=== PATIENT | male | born 1940 | race Caucasian/White ===

== ENCOUNTER 2016-10-03 07:25 | Outpatient (CLI) | payer MEDICARE, OTHER | END 2016-10-03 07:26 | disposition home or self-care (01) | DX: I82.403 Acute embolism and thrombosis of unspecified deep veins of lower extremity, bilateral (principal); I82.5Z9 Chronic embolism and thrombosis of unspecified deep veins of unspecified distal lower extremity; Z79.01 Long term (current) use of anticoagulants ==

== ENCOUNTER 2016-10-03 13:40 | Outpatient (CLI) | payer MEDICARE, OTHER | END 2016-10-03 13:41 | disposition home or self-care (01) | DX: I82.5Z9 Chronic embolism and thrombosis of unspecified deep veins of unspecified distal lower extremity (principal); Z79.01 Long term (current) use of anticoagulants ==

== ENCOUNTER 2017-07-28 09:32 | Outpatient (CLI) | payer MEDICARE ==
[2017-07-28 10:03] LABS: BASOPHILS % (AUTO) 0.7 %; EOSINOPHILS # (AUTO) 0.1 10^3/uL (0.0-0.7); EOSINOPHILS % (AUTO) 1.4 %; HGB - HEMOGLOBIN 13.1 g/dL (14.0-18.0); LYMPHOCYTES # (AUTO) 1.3 10^3/uL (1.5-3.5); LYMPHOCYTES % (AUTO) 21.8 %; MEAN CORPUSCULAR HEMOGLOBIN 29.4 pg (27.0-31.0); MEAN CORPUSCULAR HGB CONC 33.6 g/dL (32.0-36.0); MEAN CORPUSCULAR VOLUME 87.6 fL (80.0-94.0); MONOCYTES # (AUTO) 0.6 10^3/uL (0.0-1.0); MONOCYTES % (AUTO) 10.2 %; NEUTROPHILS # (AUTO) 4.1 10^3/uL (1.5-6.6); NEUTROPHILS % (AUTO) 65.9 %; NUCLEATED RED BLOOD CELLS AUTO 0.1 /100WBC; RED BLOOD COUNT 4.45 10^6/uL (4.70-6.10); RED CELL DISTRIBUTION WIDTH 13.2 % (12.0-15.0); UNCORRECTED WHITE BLOOD COUNT 6.2 x10^3/uL; WHITE BLOOD COUNT 6.2 x10^3/uL (4.8-10.8)
[2017-07-28 10:27] LABS: HEMOGLOBIN A1C 0.72 g/dL
[2017-07-28 10:33] LABS: ALBUMIN/GLOBULIN RATIO 1.7 (1.0-2.2); BILIRUBIN,TOTAL 0.4 mg/dL (0.2-1.0); BUN - BLOOD UREA NITROGEN 23 mg/dL (6-20); CALCIUM 9.8 mg/dL (8.5-10.3); CARBON DIOXIDE - CO2 24 mmol/L (21-32); CHLORIDE 102 mmol/L (101-111); CHOL/HDL RATIO 3.5 (<5.0); CHOLESTEROL 154 mg/dL; CREATININE 1.1 mg/dL (0.6-1.2); GFR - MDRD 65 (>89); GLUCOSE 140 mg/dL (70-100); HDL CHOLESTEROL 44 mg/dL; LDL/HDL RATIO 1.9 (<3.6); POTASSIUM 4.3 mmol/L (3.5-5.0); SODIUM 139 mmol/L (135-145); TOTAL PROTEIN 7.3 g/dL (6.7-8.2); TRIGLYCERIDES 126 mg/dL; VLDL CHOLESTEROL 25 mg/dL
== END 2017-07-28 09:33 | disposition home or self-care (01) ==
LOC: LAB 09:32
PROVIDERS: ATTEND Internal Medicine
DX: E03.9 Hypothyroidism, unspecified (principal); I10 Essential (primary) hypertension; E11.9 Type 2 diabetes mellitus without complications; E78.5 Hyperlipidemia, unspecified; Z79.899 Other long term (current) drug therapy
CPT/HCPCS: 36415; 80053; 80061; 83036; 84443; 85025; G0103; 84153

== ENCOUNTER 2017-10-21 10:30 | Outpatient (CLI) | payer MEDICARE ==
[2017-10-21 13:50] LABS: HB2 TOTAL 14.1 g/dL; HEMOGLOBIN A1C 0.67 g/dL; HEMOGLOBIN A1C % 6.5 % (4.6-6.2)
== END 2017-10-21 10:31 | disposition home or self-care (01) ==
LOC: LAB.R 10:30
PROVIDERS: ATTEND Internal Medicine
DX: E11.9 Type 2 diabetes mellitus without complications (principal)
CPT/HCPCS: 83036

== ENCOUNTER 2018-09-17 13:54 | Outpatient (CLI) | payer MEDICARE ==
--- NOTE | 2018-09-17 18:13 | Ultrasound Report ---
Reason: JOB PLAQUE Procedure Date: 09/17/2018 Accession Number: [id number] / [id number] Procedure: US - Carotid Doppler Complete CPT Code: FULL RESULT: EXAM: BILATERAL CAROTID AND VERTEBRAL ARTERY DUPLEX DOPPLER ULTRASOUND: EXAM DATE: 09/17/2018 03:29 PM CLINICAL HISTORY: JOB PLAQUE. COMPARISON: 10/03/2016 7:33 AM. TECHNIQUE: Grayscale imaging, color Doppler, and duplex spectral Doppler were used to evaluate the carotid and vertebral arteries bilaterally. Static images were obtained. FINDINGS: There is mixed calcified and noncalcified plaque within the right carotid bulb. Shadowing from calcified plaque limits jung scale evaluation. Aliasing on color Doppler images from turbulent flow noted on image 22. Mild to moderate mixed calcified and noncalcified plaque within the left carotid bulb and proximal ICA. Normal antegrade flow is present in bilateral vertebral arteries. VELOCITIES (cm/sec): Right CCA mid: PSV 88 cm/sec CCA dist: PSV 66 cm/sec Right carotid bulb peak systolic velocity 303 cm/s, end-diastolic velocity 71 cm/s. ICA prox: PSV 212 cm/sec, EDV 39 cm/sec ICA mid: PSV 88 cm/sec, EDV 16 cm/sec ICA dist: PSV 66 cm/sec, EDV 15 cm/sec ECA: PSV 115 cm/sec Vert: PSV 89 cm/sec ICA/CCA: 2.41 Left CCA mid: PSV 101 cm/sec CCA dist: PSV 95 cm/sec ICA prox: PSV 99 cm/sec, EDV 26 cm/sec ICA mid: PSV 131 cm/sec, EDV 33 cm/sec ICA dist: PSV 65 cm/sec, EDV 21 cm/sec ECA: PSV 171 cm/sec Vert: PSV 72 cm/sec ICA/CCA: 1.29 ICA diameter stenosis: Right: 50-69% by velocity and <70% by NASCET criteria. Left: <50% by velocity and <70% by NASCET criteria. IMPRESSION: 1. 50-69% stenosis by Doppler criteria within proximal right internal carotid artery. Higher velocities (303 cm/sec peak systolic velocity and 71 cm/sec diastolic velocity) within right carotid bulb may be related to greater than 70% stenosis. Consider CT angiography to further characterize. 2. No hemodynamically significant left ICA stenosis. 3. Antegrade flow within bilateral vertebral arteries. General Recommendations: Stenosis =50% ICA - Follow-up ultrasound 6-12 months Stenosis <50% ICA - High Risk Patient with plaque - Follow-up ultrasound 1-2 years Normal Study but High Risk Patient - Follow-up ultrasound 3-5 years Management recommendations and diagnostic criteria are based on current IAC endorsed standards in Carotid Artery Stenosis: Grayscale and Doppler Ultrasound Diagnosis. Validated velocity measurements with angiographic measurements and velocity criteria are extrapolated from diameter data as defined by the Society of Radiologists in Ultrasound Consensus Conference Radiology 2003; 229;340-346. RADIA
== END 2018-09-17 13:55 | disposition home or self-care (01) ==
LOC: DI 13:54
PROVIDERS: ATTEND Internal Medicine
DX: H34.219 Partial retinal artery occlusion, unspecified eye (principal); I65.21 Occlusion and stenosis of right carotid artery
CPT/HCPCS: 93880

== ENCOUNTER 2018-10-06 08:23 | Outpatient (CLI) | payer MEDICARE ==
[2018-10-06 08:59] LABS: CREATININE 1.3 mg/dL (0.6-1.2)
[2018-10-06] MEDS ORDERED: IOVERSOL 320 100 ML VIAL IVP ONE (09:00)
[2018-10-06] MEDS: IOVERSOL 320 100 ML VIAL IVP ONE (09:29)
--- NOTE | 2018-10-06 14:55 | CT Report ---
Reason: ABN CAROTID DUPLEX Procedure Date: 10/06/2018 Accession Number: [id number] / [id number] Procedure: CT - Neck Angio CPT Code: FULL RESULT: EXAM: CT ANGIOGRAM NECK EXAM DATE: 10/06/2018 09:27 AM. CLINICAL HISTORY: Abnormal carotid duplex. COMPARISON: Carotid ultrasound 09/17/2018. TECHNIQUE: Routine axial helical imaging was performed from the skull base through the aortic arch. Reconstructions: Routine multiplanar 3D MIP reconstructions. IV Contrast: [id number] 80mL. Evaluation of arterial stenosis is based on a NASCET method of measurement. In accordance with CT protocol optimization, one or more of the following dose reduction techniques were utilized for this exam: automated exposure control, adjustment of mA and/or KV based on patient size, or use of iterative reconstructive technique. FINDINGS: Right Carotid: Atherosclerotic plaque is seen in the distal CCA extending into the origin and proximal cervical ICA. There is a high-grade 90% stenosis involving the origin and proximal cervical ICA. This is seen over a 10 mm in length segment. Left Carotid: Atherosclerotic plaque is seen involving the distal CCA as well as the proximal cervical ICA and ECA. There is a 50% stenosis involving the proximal cervical ICA. Vertebrals: The right vertebral artery is dominant. Facet hypertrophy and uncovertebral joint spurring result in areas of mild narrowing involving the V2 segment of the right vertebral artery. There is a high-grade narrowing involving the V2 segment of the left vertebral artery due to uncovertebral joint spurring and facet hypertrophy at the level of the C4 vertebral body. There is at least mild narrowing at the origin of the left vertebral artery. There is at least moderate narrowing at the origin of the right vertebral artery. Great vessel origins: No significant stenosis is present. Intracranial Circulation: Not seen in its entirety. No high-grade stenosis or filling defect is present in the M1 segment of either MCA or in the basilar trunk. A posterior communicating artery is seen bilaterally and there is an anterior communicating artery present. The A1 segment of the right GLORIA is hypoplastic. The proximal aspect of each anterior cerebral artery is patent. The proximal aspect of each posterior cerebral artery is patent. Mild narrowing is seen in the V4 segment of the right vertebral artery and there is moderate narrowing involving the V4 segment of the left vertebral artery due to atherosclerosis. Mild to moderate stenosis is seen involving the cavernous and paraclinoid ICA bilaterally. Other: No mass is present in either orbit. No mass is present in either submandibular gland or in either parotid gland. No mass is seen in the nasopharynx. Parapharyngeal fat is symmetric. No subglottic stenosis is present. There is a 7 mm hypoenhancing nodule in the left thyroid lobe. No bulky lymphadenopathy is seen along either internal jugular chain or in the visualized upper mediastinum. No suspicious spiculated mass is present in either lung apex. Degenerative disk disease and osteophyte formation are seen at scattered levels in the cervical spine and visualized upper thoracic spine. This is greatest in the cervical spine from C4 through T1. Scattered paranasal sinus mucosal thickening is present. IMPRESSION: 1. There is a high-grade stenosis involving the origin and proximal cervical ICA on the right. 2. There is a 50% stenosis involving the proximal cervical ICA on the left. 3. Segments of narrowing are present in the V2 segment of each vertebral artery due to uncovertebral joint spurring and facet hypertrophy. 4. Stenosis is seen at the origin of each vertebral artery. 5. Mild to moderate narrowing is seen involving the cavernous and paraclinoid ICA bilaterally. 6. Narrowing is seen in the left and to a lesser extent right vertebral artery V4 segment. 7. A thyroid nodule is seen on the left measuring [address] cannot distinguish benign from malignant thyroid disease. 8. Degenerative disk disease and osteophyte formation are seen in the visualized spine. This results in multilevel foraminal stenosis. RADIA The above findings were discussed with Husam Shea by Dr. Stephen Ross at 02:19 PM hrs on 10/06/2018.
== END 2018-10-06 08:24 | disposition home or self-care (01) ==
LOC: LAB 08:23 → DI 08:24
PROVIDERS: ATTEND Internal Medicine
DX: I65.23 Occlusion and stenosis of bilateral carotid arteries (principal); I65.03 Occlusion and stenosis of bilateral vertebral arteries; E04.1 Nontoxic single thyroid nodule; M50.31 Other cervical disc degeneration, high cervical region; M47.9 Spondylosis, unspecified
CPT/HCPCS: 36415; 70498; 82565; Q9967

== ENCOUNTER 2024-03-22 16:46 | Outpatient (CLI) | payer MEDICARE | END 2024-03-22 23:59 | disposition critical access hospital (66) | LOC: EMS 16:46 | DX: E11.649 Type 2 diabetes mellitus with hypoglycemia without coma (principal); Z79.84 Long term (current) use of oral hypoglycemic drugs | CPT/HCPCS: A0425; A0429 ==

== ENCOUNTER 2024-03-22 17:01 | Emergency (ER) | payer MEDICARE ==
--- NOTE | 2024-03-22 17:42 | ED Physician Documentation ---
History of Present Illness - Stated complaint Stated Complaint: DIABETIC ISSUE - Chief complaint Chief Complaint: General - Additonal information Additional information: 83-year-old male with history of hypertension, type 2 diabetes, cholecystectomy presents emergency department for hypoglycemia.Patient was brought in for hypoglycemia he took his diabetic medication this morning routinely and then did not eat lunch. His blood sugar came down to 39 he got oral glucose and route via EMS and his blood sugar was up to 103 upon arrival. Pt takes glemupride and oral medication for his diabetes, states this has happened once before. Pt lives at home with , she called 911 as she found patient around 1500 with tremors and weakness. Pt states he is feeling Significantly better now. Sitting upright in bed eating a sandwich drinking apple juice no nausea or vomiting. PD PAST MEDICAL HISTORY - Past Medical History Past Medical History: Yes Cardiovascular: Hypertension Endocrine/Autoimmune: Type 2 diabetes - Past Surgical History Past Surgical History: Yes General: Cholecystectomy Cardiovascular: Other HEENT: Tonsil/Adenoidectomy - Allergies Allergies/Adverse Reactions: Allergies Allergy/AdvReac Type Severity Reaction Status Date / Time Sulfa (Sulfonamide Allergy Hives Verified 03/22/24 17:29 Antibiotics) - Social History Does the pt smoke?: No Smoking Status: Never smoker Does the pt drink ETOH?: Yes Does the pt have substance abuse?: No - Immunizations Immunizations are current?: Yes - POLST Patient has POLST: No PD ED PE NORMAL - Vitals Vital signs reviewed: Yes - General General: Alert and oriented X 3, No acute distress, Well developed/nourished - HEENT HEENT: Atraumatic, PERRL - Neck Neck: Supple, no meningeal sign - Cardiac Cardiac: RRR - Respiratory Respiratory: No respiratory distress - Abdomen Abdomen: Normal bowel sounds - Derm Derm: Normal color, Warm and dry, No rash - Neuro Neuro: Alert and oriented X 3, 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, No motor deficit, No sensory deficit, Normal speech Eye Opening: Spontaneous Motor: Obeys Commands Verbal: Oriented GCS Score: 15 - Psych Psych: Normal mood Results - Vitals Vitals: Oxygen O2 Source Room air - Labs Labs: Laboratory Tests 03/22/24 03/22/24 03/22/24 18:06 18:06 19:05 WBC 9.3 RBC 4.01 L Hgb 12.0 L Hct 36.6 L MCV 91.3 MCH 29.9 MCHC 32.8 RDW 13.2 Plt Count 283 MPV 11.3 Neut # (Auto) 8.0 H Lymph # (Auto) 0.8 L Howard # (Auto) 0.5 Eos # (Auto) 0.0 Baso # (Auto) 0.0 Absolute Nucleated RBC 0.00 Nucleated RBC % 0.0 Sodium 138 Potassium 4.1 Chloride 102 Carbon Dioxide 27 Anion Gap 9.0 BUN 31 H Creatinine 1.3 Estimated GFR (MDRD) 53 L Glucose 121 H POC Whole Bld Glucose 122 H Calcium 10.4 H Magnesium 1.8 Total Bilirubin 0.4 AST 23 ALT 20 Alkaline Phosphatase 52 Total Protein 7.5 Albumin 4.7 Globulin 2.8 Albumin/Globulin Ratio 1.7 Lipase 93 H 03/22/24 19:55 WBC RBC Hgb Hct MCV MCH MCHC RDW Plt Count MPV Neut # (Auto) Lymph # (Auto) Howard # (Auto) Eos # (Auto) Baso # (Auto) Absolute Nucleated RBC Nucleated RBC % Sodium Potassium Chloride Carbon Dioxide Anion Gap BUN Creatinine Estimated GFR (MDRD) Glucose POC Whole Bld Glucose 117 H Calcium Magnesium Total Bilirubin AST ALT Alkaline Phosphatase Total Protein Albumin Globulin Albumin/Globulin Ratio Lipase PD Medical Decision Making - ED course ED course: 83-year-old male presents emergency department for hypoglycemia after not eating after taking his diabetic medication. Patient reports that he is feeling significantly better now he is sitting upright eating a sandwich GCS 15 completely neurologically intact. Labs are complete for further evaluation no significant electrolyte abnormalities BUN slightly elevated at 31 GFR slightly suppressed at 53. Blood sugar has been monitored while patient has been here and remains over 100. Patient's does have a glucometer at home he was informed to skip his nightly diabetes medication tonight and to check his blood sugar every hour at home to make sure that it it is staying up and if it starts to drop to make sure that he is eating something to help with his blood sugar. Patient was also informed to follow-up with his primary care provider for further evaluation and see if he may need to change his diabetes medications as this is his second episode of hypoglycemia after not eating. Return precautions given all questions answered patient is safe for discharge at this time. Departure - Departure Disposition: 01 Home, Self Care Clinical Impression: Hypoglycemia, HUGO (acute kidney injury), Hypercalcemia Instructions: Hypoglycemia Comments: Thank you for trusting us with your care. We have monitored your blood sugar here in the emergency department and appears to be staying stable. Going home make sure that you continue to check your blood sugar every hour until you go to bed and check your blood sugar first thing in the morning upon awakening. I would skip your evening medication tonight for your type 2 diabetes to prevent from recurrent drop in your blood sugar. If going home your blood sugar drops again I would eat some peanut butter or drink some juice with sugar in it and recheck your blood sugar in about 20 to 30 minutes to make sure it is coming back up if it continues to stay low please come back to the emergency department immediately. Forms: PCP List Discharge Date/Time: 03/22/24 20:09
[2024-03-22 18:13] LABS: BASOPHILS % (AUTO) 0.1 %; EOSINOPHILS % (AUTO) 0.1 %; HCT - HEMATOCRIT 36.6 % (42.0-52.0); LYMPHOCYTES # (AUTO) 0.8 10^3/uL (1.5-3.5); LYMPHOCYTES % (AUTO) 8.3 %; MEAN CORPUSCULAR HEMOGLOBIN 29.9 pg (27.0-31.0); MEAN CORPUSCULAR HGB CONC 32.8 g/dL (32.0-36.0); MEAN CORPUSCULAR VOLUME 91.3 fL (80.0-94.0); MEAN PLATELET VOLUME 11.3 fL (7.4-11.4); MONOCYTES # (AUTO) 0.5 10^3/uL (0.0-1.0); MONOCYTES % (AUTO) 5.4 %; NEUTROPHILS % (AUTO) 85.8 %; PLT - PLATELET COUNT 283 10^3/uL (130-450); RED BLOOD COUNT 4.01 10^6/uL (4.70-6.10); RED CELL DISTRIBUTION WIDTH 13.2 % (12.0-15.0); WHITE BLOOD COUNT 9.3 x10^3/uL (4.8-10.8)
[2024-03-22 18:29] LABS: ALBUMIN 4.7 g/dL (3.2-5.5); ALBUMIN/GLOBULIN RATIO 1.7 (1.0-2.2); BILIRUBIN,TOTAL 0.4 mg/dL (0.2-1.0); CALCIUM 10.4 mg/dL (8.5-10.3); CREATININE 1.3 mg/dL (0.6-1.3); MAGNESIUM 1.8 mg/dL (1.7-2.3); POTASSIUM 4.1 mmol/L (3.5-4.5); TOTAL PROTEIN 7.5 g/dL (6.4-8.9)
[2024-03-22 19:32] VITALS: BP 156/68; O2SAT 97
== END 2024-03-22 20:09 | disposition home or self-care (01) ==
LOC: EDUNIT# → ED 17:01
DX: E11.649 Type 2 diabetes mellitus with hypoglycemia without coma (principal); N17.9 Acute kidney failure, unspecified; E83.52 Hypercalcemia; Z79.84 Long term (current) use of oral hypoglycemic drugs
CPT/HCPCS: 36415; 80053; 83690; 83735; 85025; 99283; 99284